=== PATIENT | male | born 1980 | race Caucasian/White ===

== ENCOUNTER 2023-07-21 07:53 | Day surgery (SDC) | payer BC ==
[2023-07-19 09:26] LABS: Potassium 4.9 mEq/L (3.5-5.1)
--- NOTE | 2023-07-19 12:55 | EKG ---
Test Date: 2023-07-19 Test Time: 08:53:00 Crime Scene Photographer: DAPHNEY MEASUREMENT RESULTS: Intervals: Rate: 75 RI: 148 QRSD: 88 QT: 388 QTc: 433 [place]: P: 70 RI: 148 QRS: 74 T: 56 INTERPRETIVE STATEMENTS: Normal sinus rhythm Normal ECG No previous ECG available for comparison Electronically Signed On 07-19-23 12:55:20 CDT by Blake Rodríguez
[~2023-07-21 07:53] MED LIST: FENTANYL CITR 100 MCG/2 ML ONE; KETOROLAC 30 MG/ML INJ ONE; LIDOCAINE 2% MPF 5 ML VIAL ONE; MIDAZOLAM HCL 2 MG/2 ML INJ ONE; ONDANSETRON 4 MG/2 ML VIAL ONE; dexAMETHasone 10 MG/ML VIAL ONE; propofoL 200 MG/20 ML VIAL IV ONE
[2023-07-21] MEDS ORDERED: Ringers Lactate 1,000 ML IV ONE (08:27)
[2023-07-21] MEDS ORDERED: CEFAZOLIN SODIUM 2 GM/VIAL ONE (08:27)
[2023-07-21 08:37] VITALS: O2SAT 100
[2023-07-21] MEDS ORDERED: LIDOCAINE HCL/EPINEPHRINE 20 ML MDV ONE (09:15)
--- NOTE | 2023-07-21 10:06 | P.OP ---
Preoperative diagnosis: Posterior Neck Cyst Postoperative diagnosis: Posterior Neck Cyst Primary procedure: Wide Excision of Posterior Neck Cyst Anesthesia: GETA + Local Estimated blood loss: <5cc Specimen: Neck Cyst, cultures Findings: ~ 3cm sebaceous cyst, posterior central neck into adipose Complications: None Transferred to: Recovery Room Condition: Good
[2023-07-21 11:22] VITALS: BP 108/70; TEMP 97.4
[2023-07-21] MEDS ORDERED: propofoL 200 MG/20 ML VIAL IV ONE (11:47)
[2023-07-21] MEDS ORDERED: ONDANSETRON 4 MG/2 ML VIAL ONE (11:47)
[2023-07-21] MEDS ORDERED: dexAMETHasone 10 MG/ML VIAL ONE (11:47)
[2023-07-21] MEDS ORDERED: MIDAZOLAM HCL 2 MG/2 ML INJ ONE (11:47)
[2023-07-21] MEDS ORDERED: FENTANYL CITR 100 MCG/2 ML ONE (11:47)
[2023-07-21] MEDS ORDERED: KETOROLAC 30 MG/ML INJ ONE (11:47)
[2023-07-21] MEDS ORDERED: LIDOCAINE 2% MPF 5 ML VIAL ONE (11:47)
--- NOTE | 2023-07-21 12:04 | OP ---
Date of Procedure: 07/21/2023 Surgeon: David Mckenzie MD, Preoperative Diagnosis: Posterior neck cyst. Postoperative Diagnosis: Posterior neck cyst. Procedure Performed: Wide local excision of posterior neck cyst. Anesthesia: General endotracheal plus local with 0.25% Marcaine. Estimated Blood Loss: Less than 5 cc. Specimens: Neck cyst and culture sent both aerobic and anaerobic speciation. Findings: Approximately 2 cm sebaceous material containing cyst of the posterior neck with appearanc e of previous rupture posterior central neck cyst extended into adipose tissue. Complications: None. Disposition: Patient was transferred to recovery room in good condition. Procedure In Detail: After informed consent was obtained, patient was brought to the operating room, prepped and draped in the usual sterile fashion after adequate anesthesia was achieved, transverse i ncision was made in the posterior neck overlying an area of sebaceous cyst like material. I then dis sected down circumferentially around the sebaceous cyst, which extended all the way to the skin level . The skin ellipse was taken out involving the origin of the sebaceous material with a tenotomy scis sor. I then removed the cyst in its entirety, sent it off for pathologic examination. Sebaceous mat erial was emanating from this area and cultured both aerobic and anaerobic speciation. The area was copiously irrigated. I used a curette to clean up any residual tissue. I irrigated the area multipl e times to completely clear. Hemostasis was achieved with electrocautery. The wound was then closed using interrupted 3-0 nylon sutures and sterile dressing was placed over top. The patient tolerated the procedure without evidence of any complication and transferred to PACU in good condition. All c ounts were correct at the end of the case. DC/DAWOODL Voice ID: [id number] Report ID: [id number]
== END 2023-07-21 11:19 | disposition home or self-care (01) ==
LOC: OR 07:53
PROVIDERS: ATTEND Surgery
PROC: 0JB70ZZ Excision of Back Subcutaneous Tissue and Fascia, Open Approach (ICD-10-PCS; principal; 2023-07-21 10:00)
DX: L72.3 Sebaceous cyst (principal)
CPT/HCPCS: 11402; 93005; 87070; 80048; 36415; 87205; 88304; 87075; 87077 ×2; 87186 ×2; J2704 ×2; J2001 ×2; J2250 ×2; J3010 ×2; J1100 ×2; J2405 ×2; J7120

== ENCOUNTER → 2024-01-05 | Day surgery (SDC) | payer BC ==
[2024-01-03 08:23] LABS: Potassium 4.2 mEq/L (3.5-5.1)
[2024-01-05] MEDS: Ringers Lactate 1,000 ML IV ONE (13:05)
[2024-01-05 13:18] VITALS: O2SAT 100
[2024-01-05] MEDS: CEFAZOLIN SODIUM 1 GM/VIAL ONE (14:13)
[2024-01-05] MEDS: BUPIVACAINE 0.25% PF 30 ML VIAL ONE (14:25)
--- NOTE | 2024-01-05 14:44 | P.OP ---
Preoperative diagnosis: Posterior Neck Cyst Postoperative diagnosis: Posterior Neck Cyst Primary procedure: Wide Local Excision of Posterior Neck Cyst Anesthesia: GETA + Local Estimated blood loss: <5cc Specimen: Posterior Neck Cyst Findings: ~2cm x 1cm ellipse of skin with cyst Complications: None Transferred to: Recovery Room Condition: Good
[2024-01-05 16:17] VITALS: BP 112/76; TEMP 97
--- NOTE | 2024-01-05 20:30 | OP ---
Date of Procedure: 01/05/2024 Surgeon: David Mckenzie MD, Preoperative Diagnosis: Posterior neck cyst. Postoperative Diagnosis: Posterior neck cyst. Procedure Performed: Wide local excision posterior neck cyst. Anesthesia: General endotracheal plus local 0.25% Marcaine. Estimated Blood Loss: Less than 5 cc. Specimen: Posterior neck cyst. Findings: Approximately 2 cm x 1 cm ellipse of skin with cyst intact posterior neck from near previo us incision. Complication: None. Disposition: The patient transferred to recovery room in good condition. Procedure In Detail: After informed was obtained, the patient was brought to the operating room, pre pped and draped in the usual sterile fashion. After adequate anesthesia, I made an elliptical incisi on circumferentially around the posterior neck cyst approximately 2 cm x 1 cm down to subcutaneous ti ssue using 15 blade and then dissected using electrocautery down to subcutaneous tissue. This was re moved and sent off for pathologic examination. The area was copiously irrigated. Hemostasis achieve d with electrocautery. The wound was then closed using interrupted 3-0 nylon sutures. A sterile kevin ssing placed on top. The patient tolerated the procedure without incident or complication and transferred to PACU in good condition. All counts were correct at the end of the case. DC/LASHA Voice ID: [id number] Report ID: [id number]
== END | disposition home or self-care (01) ==
LOC: OR 12:44
PROVIDERS: ATTEND Surgery
PROC: 0JB40ZZ Excision of Right Neck Subcutaneous Tissue and Fascia, Open Approach (ICD-10-PCS; principal; 2024-01-05 15:15)
DX: L72.0 Epidermal cyst (principal)
CPT/HCPCS: 80048; 36415; 88304; 11422; J2704; J2001 ×2; J2250; J3010; J1100; J2405 ×2; J7120; J0690